=== PATIENT | female | born 1965 | race Caucasian/White ===

== ENCOUNTER → 2016-07-30 | Outpatient (CLI) | payer MEDICAID ==
--- NOTE | 2016-07-30 16:34 | DX ---
Bilateral Feet - 6 views Indication: Rule out rheumatoid arthropathy changes. Patient reports "rheumatoid arthropathy flare". Technique: Bilateral AP, oblique, and lateral views. Comparison: Bilateral feet dated December 28, 2015. Findings: The normally mineralized bones are anatomically aligned. No joint space narrowing or margin al erosions. No soft tissue calcification. Impression: Negative. No erosive arthropathy or change since December 2015.
--- NOTE | 2016-07-30 17:22 | DX ---
Bilateral hands - 6 views total Indication: Pain. Suspect rheumatoid arthropathy flare. Technique: Bilateral AP and [place] views. Comparison: Bilateral hands dated December 28, 2015 Findings: The normally mineralized bones are anatomically aligned. Joint spaces are well preserved. N o marginal erosions. Impression: Normal bilateral hands. No erosive arthropathy or change since December 2015.
== END ==
LOC: BMCIMAGING 15:45
PROVIDERS: ATTEND Internal Medicine Rheumatology
DX: M79.641 Pain in right hand (principal); M79.642 Pain in left hand; M79.671 Pain in right foot; M79.672 Pain in left foot

== ENCOUNTER → 2017-01-09 | Outpatient (CLI) | payer OTHER, MEDICAID | LOC: BMCIMAGING 12:38 | PROVIDERS: ATTEND Internal Medicine Rheumatology | DX: Z13.828 Encounter for screening for other musculoskeletal disorder (principal) ==

== ENCOUNTER → 2017-03-18 | Outpatient (CLI) | payer OTHER, MEDICAID | LOC: FIMAGING 11:54 | PROVIDERS: ATTEND Family Medicine | DX: Z12.31 Encounter for screening mammogram for malignant neoplasm of breast (principal); Z80.3 Family history of malignant neoplasm of breast | CPT/HCPCS: G0202 ==